=== PATIENT | female | born 1985 | race Caucasian/White ===

== ENCOUNTER 2023-12-24 12:17 | Emergency (ER) | payer OTHER ==
[~2023-12-24] VITALS: Ht 170.2 cm; Wt 108.9 kg
[2023-12-24 12:22] VITALS: BP 156/93
[2023-12-24] MEDS ORDERED: TIZA4 PO ×3 (12:28→13:00)
[2023-12-24] MEDS ORDERED: NABU500 PO ×3 (12:29→13:00)
[2023-12-24] MEDS ORDERED: VRAYLAR6 MG PO ×3 (12:29→13:00)
[2023-12-24] MEDS ORDERED: TRAZ50 PO ×3 (12:29→13:00)
[2023-12-24] MEDS ORDERED: LITH300C PO ×3 (12:30→13:00)
[2023-12-24] MEDS ORDERED: ADVAIR HFA 230-28 GM (12:32)
[2023-12-24] MEDS ORDERED: TRAZ100 PO ×2 (12:51→13:00)
[2023-12-24] MEDS ORDERED: FLUTICASONE PRO12 G1 INH ×2 (12:51→13:00)
== END 2023-12-24 13:04 | disposition home or self-care (01) ==
LOC: ER 12:17
DX: Z76.0 Encounter for issue of repeat prescription (principal); Z79.899 Other long term (current) drug therapy; Z88.5 Allergy status to narcotic agent
CPT/HCPCS: 99281

== ENCOUNTER → 2024-12-09 | Outpatient (CLI) | payer OTHER ==
[~2024-12-09] MED LIST: ADVAIR HFA 230-28 GM; FLUTICASONE PRO12 G1 INH; LITH300C PO; NABU500 PO; TIZA4 PO; TRAZ100 PO; TRAZ50 PO; VRAYLAR6 MG PO
[2024-12-17 11:11] LABS: HPV HIGH RISK BY TMA Not Detected; HPV SOURCE Cervical
== END | disposition home or self-care (01) ==
LOC: LAB 18:24 → LAB SHORT 18:24
DX: Z12.4 Encounter for screening for malignant neoplasm of cervix (principal)
CPT/HCPCS: 87624; G0123

== ENCOUNTER → 2025-05-26 | Outpatient (CLI) | payer OTHER ==
[2025-05-26 20:44] LABS: Candida glabrata-krusei, PCR NOT DETECTED (NOT DETECT)
[2025-05-26 21:21] LABS: Bacterial Vaginosis PCR Positive (NEGATIVE); Candida Group, PCR DETECTED (NOT DETECT)
== END | disposition home or self-care (01) ==
LOC: LAB SHORT 18:25 → LAB 18:25
DX: R10.2 Pelvic and perineal pain (principal)
CPT/HCPCS: 81515